=== PATIENT | female | born 1950 | race African-American/Black ===

== ENCOUNTER 2017-04-21 13:11 | Emergency (ER) | payer MEDICARE, OTHER ==
[2017-04-21 13:40] LABS: Bilirubin Negative (Negative); Blood, Urine Small (Negative); Glucose, Urine (Dipstick) Negative (Negative); Ketone, Urine Negative (Negative); Nitrite Negative (Negative); Protein, Urine (Dipstick) 300 mg/dL (Neg-Trace); Urobilinogen 0.2 mg/dL (0.2-1.0)
[2017-04-21 13:42] LABS: Bacteria/HPF 4+ HPF (None Seen); Hyaline Casts/LPF 0-3 HYALINE CAST LPF (0-3 Hyaline)
[2017-04-21 13:51] LABS: Yeast-All Forms None Seen HPF (None Seen)
[2017-04-21 14:01] LABS: #Eosinphils 0.1 thou/uL (0.0-0.7); #Lymphocytes 1.5 thou/uL (1.20-3.40); #Monocytes 0.4 thou/uL (0.11-0.59); #Neutrophils 4.3 thou/uL (1.40-6.50); %Basophils 0.2 % (0.0-1.0); %Lymphocytes 23.8 % (21.0-51.0); %Monocytes 6.7 % (0.0-10.0); Hematocrit 32.3 % (36.0-47.0); Mean Platelet Volume 7.5 fL (7.4-10.4); Red Blood Cell (RBC) Count 3.65 mill/uL (4.20-5.40); White Blood Cell (WBC) Count 6.3 thou/uL (4.8-10.8)
[2017-04-21 14:32] LABS: ALT (SGPT) 12 U/L (8-55); AST (SGOT) 18 U/L (5-34); Alkaline Phosphatase 97 U/L (40-150); Anion Gap 12 mmol/L (10-20); BUN (Urea Nitrogen) 31 mg/dL (9.8-20.1); Bilirubin, Total 0.7 mg/dL (0.2-1.2); CK (CPK) 224 U/L (29-168); Calc. Creatinine Clearance 0 mL/min (70-130); Calcium 9.6 mg/dL (7.8-10.44); Carbon Dioxide 19 mmol/L (23-31); Chloride 107 mmol/L (98-107); Estimated GFR-MDRD 27; Globulin 3.3 g/dL (2.4-3.5); Lipase 71 U/L (8-78)
== END 2017-04-21 15:15 | disposition home or self-care (01) ==
LOC: ERS 13:11
DX: K59.00 Constipation, unspecified (principal); E10.22 Type 1 diabetes mellitus with diabetic chronic kidney disease; I12.0 Hypertensive chronic kidney disease with stage 5 chronic kidney disease or end stage renal disease; N18.9 Chronic kidney disease, unspecified; N30.01 Acute cystitis with hematuria; K29.70 Gastritis, unspecified, without bleeding; E78.5 Hyperlipidemia, unspecified; Z79.82 Long term (current) use of aspirin; Z79.899 Other long term (current) drug therapy; Z79.4 Long term (current) use of insulin
CPT/HCPCS: 36415; 80053; 81003; 81015; 82550; 82553; 83690; 84484; 85025; 93005

== ENCOUNTER 2018-06-09 12:26 | Day surgery (SDC) | payer MEDICARE | END 2018-06-09 18:55 | disposition home or self-care (01) | LOC: SDC/OP 12:26 | PROVIDERS: ATTEND Internal Medicine | PROC: 30233N1 Transfusion of Nonautologous Red Blood Cells into Peripheral Vein, Percutaneous Approach (ICD-10-PCS; principal; 2018-06-09) | DX: D64.9 Anemia, unspecified (principal); Z88.0 Allergy status to penicillin; Z88.8 Allergy status to other drugs, medicaments and biological substances | CPT/HCPCS: 36430; 62272; 82962; 86850; 86900; 86901; 86920; P9016; 36415; 36416 ==